=== PATIENT | male | born 1990 | race African-American/Black ===

== ENCOUNTER 2016-06-17 14:07 | Emergency (ER) | payer OTHER ==
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
== END 2016-06-17 16:09 | disposition home or self-care (01) ==
LOC: M ED 14:07
DX: M54.5 Low back pain (principal); M25.512 Pain in left shoulder; M25.552 Pain in left hip; Z88.6 Allergy status to analgesic agent